=== PATIENT | female | born 2000 | race Caucasian/White ===

== ENCOUNTER 2020-03-14 14:53 | Emergency (ER) | payer OTHER ==
[~2020-03-14] VITALS: Ht 154.9 cm; Wt 72.6 kg
[2020-03-14] MEDS ORDERED: PREDNISONE20 M1 PO (16:32)
[2020-03-14] MEDS ORDERED: AMOXICILLIN500 M2 PO (16:32)
== END 2020-03-14 17:25 | disposition home or self-care (01) ==
LOC: ED 14:53
DX: J02.9 Acute pharyngitis, unspecified (principal)